=== PATIENT | male | born 1970 | race Hispanic/Latino ===

== ENCOUNTER → 2016-12-30 | Outpatient (CLI) | payer OTHER ==
[~2016-12-30] MED LIST: ADVI200T PO; FLAG500T PO; LEVA1TAB2 PO; TYLE325T5 PO
--- NOTE | 2016-12-30 17:27 | REP ---
UNILATERAL LEFT RIBS, PA CHEST: HISTORY: Rib injury. The lungs are clear. The heart is normal in size. The pulmonary vasculature is normal in appearance. There are fractures of the left 7th and 8th ribs. IMPRESSION: Left 7th and 8th rib fractures. Signed by Sadiq Meehan MD 12/30/2016 06:18 P
[2016-12-30 20:44] LABS: MEAN CORPUSCULAR HEMOGLOBIN 34.2 pg (27.0-33.0); MEAN CORPUSCULAR HGB CONC 35.6 g/dl (32.0-36.5); MEAN CORPUSCULAR VOLUME 95.9 fl (80.0-96.0); RED CELL DISTRIBUTION WIDTH 11.7 % (11.5-14.5); WHITE BLOOD COUNT 6.1 K/mm3 (4.0-10.0)
[2016-12-30 20:54] LABS: ALBUMIN 3.8 GM/DL (3.2-5.2); ALBUMIN/GLOBULIN RATIO 1.31 (1.00-1.93); ALKALINE PHOSPHATASE 85 U/L (45-117); ALT/SGPT 47 U/L (12-78); ANION GAP 8 MEQ/L (8-16); AST/SGOT 27 U/L (15-37); BILIRUBIN,TOTAL 0.8 MG/DL (0.2-1.0); BLOOD UREA NITROGEN 19 MG/DL (7-18); CALCIUM LEVEL 8.4 MG/DL (8.5-10.1); CARBON DIOXIDE LEVEL 27 MEQ/L (21-32); CHLORIDE LEVEL 105 MEQ/L (98-107); CREATININE FOR GFR 0.76 MG/DL (0.70-1.30); GLOMERULAR FILTRATION RATE > 60.0 (>60); GLUCOSE, FASTING 85 MG/DL (70-105); POTASSIUM SERUM 4.4 MEQ/L (3.5-5.1); SODIUM LEVEL 140 MEQ/L (136-145); TOTAL PROTEIN 6.7 GM/DL (6.4-8.2)
[2016-12-30 21:50] LABS: EOSINOPHILS 4 % (0-5)
[2017-01-02 00:07] LABS: Lyme Disease IgG/IgM Antibodie <0.91 ISR (0.00-0.90); Lyme Disease IgM Ab Quantitati <0.80 index (0.00-0.79)
== END ==
LOC: M WUC 16:20
PROVIDERS: ATTEND Physician Assistant
DX: S22.42XA Multiple fractures of ribs, left side, initial encounter for closed fracture (principal); X58.XXXA Exposure to other specified factors, initial encounter; Y92.9 Unspecified place or not applicable; Y93.9 Activity, unspecified; Y99.9 Unspecified external cause status; Z11.3 Encounter for screening for infections with a predominantly sexual mode of transmission; R53.83 Other fatigue

== ENCOUNTER → 2017-02-03 | Outpatient (REF) | payer OTHER | LOC: M SFHCPLAZ 10:55 | PROVIDERS: ATTEND Physician Assistant | DX: Z13.220 Encounter for screening for lipoid disorders (principal) ==

== ENCOUNTER → 2022-09-17 | Outpatient (REF) | payer OTHER | LOC: M LAB REF 16:25 | PROVIDERS: ATTEND Nurse Practitioner Family | DX: Z11.9 Encounter for screening for infectious and parasitic diseases, unspecified (principal) ==

== ENCOUNTER → 2022-10-03 | Outpatient (REF) | payer OTHER ==
[2022-10-03 17:03] LABS: BASO % 0.4 % (0.0-1.0); EOS # 0.2 10^3/uL (0.0-0.5); EOS % 3.3 % (0.0-3.0); HEMATOCRIT 43.7 % (42.0-52.0); HEMOGLOBIN 15.2 g/dl (13.5-17.5); LYMPH # 1.7 10^3/uL (1.5-5.0); LYMPH % 22.4 % (24.0-44.0); MEAN CORPUSCULAR HEMOGLOBIN 32.8 pg (27.0-33.0); MEAN CORPUSCULAR HGB CONC 34.8 g/dl (32.0-36.5); MEAN CORPUSCULAR VOLUME 94.2 fl (80.0-96.0); MONO # 0.7 10^3/uL (0.0-0.8); MONO % 9.8 % (2.0-8.0); NEUTROPHILS # 4.7 10^3/uL (1.5-8.5); NEUTROPHILS % 63.8 % (36.0-66.0); PLATELET COUNT, AUTOMATED 252 10^3/uL (150-450); RED BLOOD COUNT 4.64 10^6/uL (4.30-6.10); WHITE BLOOD COUNT 7.4 10^3/uL (4.0-10.0)
[2022-10-03 17:58] LABS: THYROID STIMULATING HORMONE 1.378 uIU/ML (0.55-4.78)
[2022-10-03 17:59] LABS: ALBUMIN 3.8 G/DL (3.2-5.2); ALKALINE PHOSPHATASE 86 U/L (46-116); ALT/SGPT 34 U/L (7.0-40); AST/SGOT 25 U/L (<34); BILIRUBIN,TOTAL 0.9 MG/DL (0.3-1.2); BLOOD UREA NITROGEN 18 MG/DL (9-23); CALCIUM LEVEL 8.7 MG/DL (8.5-10.1); CARBON DIOXIDE LEVEL 28 MMOL/L (20-31); CHLORIDE LEVEL 105 MMOL/L (98-107); CHOLESTEROL LEVEL 195 MG/DL (<200); CHOLESTEROL RISK RATIO 2.11 (<5); CREATININE FOR GFR 0.67 MG/DL (0.70-1.30); GLOMERULAR FILTRATION RATE > 60.0 (>56); GLUCOSE, FASTING 84 MG/DL (60-100); HDL CHOLESTEROL 92.1 MG/DL (>40); LDL CHOLESTEROL 87.7 MG/DL (<100); NON-HDL-C 102.9 MG/DL; POTASSIUM SERUM 4.3 MMOL/L (3.5-5.1); SODIUM LEVEL 139 MMOL/L (136-145); TOTAL 25(OH) VITAMIN D 21.2 NG/ML (20.0-100.0); TOTAL PROTEIN 6.5 G/DL (5.7-8.2); TRIGLYCERIDES LEVEL 76 MG/DL (<150)
== END ==
LOC: M LAB REF 16:18
PROVIDERS: ATTEND Nurse Practitioner Family
DX: E55.9 Vitamin D deficiency, unspecified (principal); R03.0 Elevated blood-pressure reading, without diagnosis of hypertension; R53.83 Other fatigue; Z68.20 Body mass index [BMI] 20.0-20.9, adult